=== PATIENT | male | born 1965 | race Caucasian/White ===

== ENCOUNTER 2017-05-09 00:31 | Emergency (ER) | payer MEDICAID ==
[~2017-05-09] VITALS: Ht 172.7 cm; Wt 70.0 kg
[2017-05-09 01:00] LABS: BLOOD UREA NITROGEN 6 mg/dL (7-18)
[2017-05-09 01:06] LABS: ACETAMINOPHEN < 2 mcg/mL (10-30)
[2017-05-09 02:41] LABS: DAU SCREEN DISCLAIMER
[2017-05-09 11:58] VITALS: BP 118/74
== END 2017-05-09 12:24 | disposition home or self-care (01) ==
LOC: ED 05:15
DX: F32.9 Major depressive disorder, single episode, unspecified (principal); R45.851 Suicidal ideations; F10.120 Alcohol abuse with intoxication, uncomplicated; F19.10 Other psychoactive substance abuse, uncomplicated
CPT/HCPCS: 36415; 80048; 80307; 80329; 82040; 85025; 99284; G0480